=== PATIENT | female | born 1965 | race Caucasian/White ===

== ENCOUNTER 2020-09-29 14:57 | Emergency (ER) | payer BC, SELFPAY ==
--- NOTE | ~2020-09-29 | XR_ITS ---
EXAMINATION: XR chest 2V EXAM DATE: 09/29/2020 15:32 INDICATION: Midsternal chest pain, left arm tingling, weakness, almost fell to floor at 1 o'clock thi s afternoon. TECHNIQUE: Frontal and lateral projections of the chest obtained and reviewed. There is no prior tiffany dy for comparison. FINDINGS: The lungs are clear. There are no pleural effusions. The cardiomediastinal silhouette is within normal limits. There is no pneumothorax suspected. The bones and soft tissues are unremarkab le. IMPRESSION: Normal chest x-ray exam. Reviewed, dictated and finalized at location A. IMPRESSION: Normal chest x-ray exam.
[2020-09-29 15:11] VITALS: BP 125/84; PULSE 71; RESP 16; TEMP 36.1; O2SAT 100
--- NOTE | 2020-09-29 15:11 | ECG_ITS ---
Measurements Intervals [place] Rate: 78 P: 72 LA: 184 QRS: 49 QRSD: 84 T: 74 QT: 360 QTc: 411 Interpretive Statements SINUS RHYTHM BORDERLINE T WAVE ABNORMALITY- HIGH LATERAL LEADS BASELINE ARTIFACT- I, II, AVR BORDERLINE ECG Electronically Signed On 09-29-2020 17:34:12 CDT by Kevin Paredes D.O.
[2020-09-29 15:22] LABS: Basophils Absolute Auto 0.1 K/mm3 (0.0-0.1); Basophils Percent Auto 1.3 % (0.2-1.2); Eosinophils Absolute Auto 0.2 K/mm3 (0-0.3); Eosinophils Percent Auto 2.7 % (0-4.4); Hematocrit 40.4 % (37.0-47.0); Immature Granulocyte Absolute 0.01 K/mm3 (0.00-0.031); Immature Granulocyte Percent A 0.1 % (0-0.5); Lymphocytes Absolute Auto 2.74 K/mm3 (0.9-3.2); Lymphocytes Percent Auto 35.8 % (18.3-44.2); Mean Corpuscular HGB Conc 32.2 g/dl (32-36); Mean Corpuscular Hemoglobin 30.2 pg (26-34); Mean Corpuscular Volume 93.7 fl (80-100); Mean Platelet Volume 10.5 fl (7.4-10.4); Monocytes Absolute Auto 0.4 K/mm3 (0.1-0.6); Monocytes Percent Auto 5.6 % (2.6-8.5); Neutrophils Absolute Auto 4.2 K/mm3 (1.3-6.7); Neutrophils Percent Auto 54.5 % (45.5-73.1); Platelet Count Result 315 k/mm3 (150-375); Red Blood Count 4.31 M/mm3 (4.2-5.4); Red Cell Distribution Width 12.2 % (11.5-14.5); White Blood Count 7.7 K/mm3 (4.5-10.0)
[2020-09-29 15:32] LABS: Anion Gap 6 mmol/L (8-16); Blood Urea Nitrogen 17 mg/dL (7-17); Calcium 9.5 mg/dL (8.4-10.2); Carbon Dioxide 27 mmol/L (22-30); Chloride 104 mmol/L (98-107); Estimated CRCL calculation 50 ml/min; Estimated Glomerular Filt Rate > 60; Glucose 98 mg/dL (65-105); Potassium 3.7 mmol/L (3.4-5.0); Sodium 137 mmol/L (137-145)
[2020-09-29 15:36] LABS: INR 0.9; Prothrombin Time 12.6 Seconds (11.1-14.7)
[2020-09-29 15:37] LABS: Partial Thromboplastin Time 29.6 SECONDS (22.3-36.8)
[2020-09-29 15:44] LABS: Troponin I < 0.012 ng/mL (0.000-0.034)
[2020-09-29 17:41] VITALS: PULSE 70
[2020-09-29] MEDS: ASPIRIN 81 MG CHEWABLE TABLET 324 MG PO (18:03)
[2020-09-29 18:07] LABS: D Dimer 0.32 ug/mL (<0.48)
--- NOTE | 2020-09-29 18:12 | ED.GENADULT ---
HPI - General Adult General Chief complaint: Unspecified Stated complaint: L arm pain, weak Time Seen by Provider: 09/29/20 17:30 Source: patient Mode of arrival: ambulatory Limitations: no limitations History of Present Illness HPI narrative: This is a 55 year old female who presents for evaluation chest pain. 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 She states the pain was so severe that she fell to the ground but no LOC. She also reports midsternal chest pain. This pain lasted only a minute or two. She denies nausea, diaphoresis or sob. She denies cardiac history. She denies exertional symptoms. Related Data Allergies Allergy/AdvReac Type Severity Reaction Status Date / Time erythromycin base Allergy Unknown Verified 12/22/19 10:56 Penicillins Allergy Unknown Verified 12/22/19 10:56 tetracycline Allergy Unknown Verified 12/22/19 10:56 Review of Systems Review of Systems: Narrative: CONSTITUTIONAL: Denies fever, chills, or sweats. EYES: Denies visual changes, redness, or discharge. ENT: Denies rhinorrhea, congestion, sore throat, or otalgia. CARDIOVASCULAR: Denies, palpitations, or edema. reports chest pain RESPIRATORY: Denies cough or dyspnea. GASTROINTESTINAL: Denies abdominal pain, nausea, vomiting, or diarrhea. GENITOURINARY: Denies dysuria or hematuria. SKIN: Denies rash or itching. MUSCULOSKELETAL: Denies joint pain, or myalgia. NEUROLOGIC: Denies headache, numbness, or weakness. PSYCHIATRIC: Denies anxiety or depression. All systems reviewed & are unremarkable except as noted in HPI and below PMFSH Past Medical History Medical History (Updated 09/29/20 @ 20:02 by Mily Torres MD) Hypothyroidism Surgical History Surgical History (Updated 09/29/20 @ 18:28 by Mily Torres MD) History of hysterectomy Family History Family History (System 12/22/19 @ 10:56 by Mary Ann West) Mother Carcinoma of colon Sibling Family history of attention deficit hyperactivity disorder (ADHD) Social History Social History (System 12/22/19 @ 10:56 by Mary Ann West) Smoking status: Never smoker Alcohol intake: current Exam Narrative: Exam Narrative: GENERAL: Well-appearing, well-nourished, and in no acute distress. HEAD: Normocephalic, atraumatic EYES: PERRLA and EOMI, conjunctiva clear without discharge EARS: TM's clear bilaterally without erythema or dullness NOSE: Nares clear, no rhinorrhea or epistaxis THROAT:Mucous membranes moist, Oropharynx normal without erythema, exudate, peritonsillar swelling or fluctuance NECK: Supple, without lymphadenopathy or mass RESPIRATORY: No respiratory distress, Airway patent, Respirations non-labored, Clear to auscultation without rales, rhonchi or wheeze HEART: Regular rate and rhythm. No murmur heard. Normal peripheral pulses. ABDOMEN: Soft, nontender, nondistended, normal active bowel sounds. No masses. No rebound or guarding, No organomegaly. EXTREMITIES: No edema, normal strength with full range of motion. SKIN: Warm, dry, normal color without rash NEURO: Alert and oriented x3. CN 2-12 grossly intact. No focal deficits. PSYCH: Normal mood and affect. Course Reevaluation(s) Reevaluation #1: Patient states she feels fine. she has not pain. She is asking to go home. I have discussed with her it is important that she follow up with PCP on Friday and she should return if her pain returns. Date: 09/29/20 Time: 19:57 Vital Signs Vital signs: Vital Signs Temperature 97.0 F L 09/29/20 15:11 Pulse Rate 71 09/29/20 15:11 Respiratory Rate 16 09/29/20 15:11 Blood Pressure 125/84 09/29/20 15:11 Pulse Oximetry 100 09/29/20 15:11 Temperature 97.0 F L 09/29/20 15:11 Pulse Rate 67 09/29/20 18:16 Respiratory Rate 16 09/29/20 18:16 Blood Pressure 125/74 09/29/20 19:54 Pulse Oximetry 100 09/29/20 18:16 Medical [facility]
[2020-09-29 18:16] VITALS: BP 130/76; PULSE 67; RESP 16; O2SAT 100
[2020-09-29 19:54] VITALS: BP 125/74
[2020-09-29 20:24] VITALS: BP 109/74; PULSE 72; RESP 18; O2SAT 99
== END 2020-09-29 20:24 | disposition home or self-care (01) ==
PROVIDERS: Emergency Medicine; Emergency Provider General Practice; PCP Internal Medicine
DX: R07.89 Other chest pain (principal); E03.9 Hypothyroidism, unspecified; R94.31 Abnormal electrocardiogram [ECG] [EKG]
CPT/HCPCS: 36415; 71046; 80048; 84484; 85025; 85380; 85610; 85730; 93005; 99284; A9270

== ENCOUNTER 2023-03-20 15:12 | Outpatient (CLI) | payer BC, SELFPAY ==
--- NOTE | ~2023-03-20 | MR_ITS ---
EXAMINATION: MR knee RT wo con DATE: 03/20/2023 16:18 INDICATION: Other tear of medial meniscus with medial right knee pain. TECHNIQUE: Magnetic resonance imaging (MRI) of the right knee was performed without intravenous contr ast. Sequences included coronal PD-weighted FSE, coronal PD-weighted FS FSE, sagittal T2-weighted FS E, sagittal PD-weighted FS FSE and axial PD weighted fat saturated FSE. COMPARISON: None. FINDINGS: Medial compartment: In the body and medial side of the posterior horn of the medial meniscus are small with essentially a bsent meniscal tissue in the region of the lateral side of the posterior horn which could relate eith er meniscal tear or prior partial meniscectomy in the appropriate clinical setting. There is a large para meniscal cyst along the periphery of the medial meniscal body which measures 3.6 cm AP, 4.2 cm c raniocaudally and up to 1.5 cm in maximal thickness. Partial-thickness cartilage loss with chondral s urface irregularity along the weightbearing medial femoral condyle most prominent at the central aspe ct medial femoral condyle where it appears to involve greater than 50% the cartilage thickness. Addit ional deep chondral ulceration and fissuring at the junction of the anterior most weightbearing media l femoral condyle and the medial trochlea with underlying cortical irregularity with small central carlos bchondral osteophytes. Partial-thickness cartilage loss and fissuring along the medial and posteromed ial aspect of the medial tibial plateau with a couple foci of mild underlying subarticular edema-like signal change. Lateral compartment: Lateral meniscus is normal. Small regions of partial-thickness chondral fissuring involving less than 50% the cartilage thickness at the junction the anterior to central weightbearing lateral femoral co ndyle and greater than 50% the cartilage thickness along the posterior rim of the lateral tibial plat eau. There is partial thickness cartilage loss along the medial side of the lateral tibial plateau al lane the shoulder the intercondylar eminence. Patellofemoral compartment: Deep chondral ulceration with underlying cortical irregularity and small central subchondral osteophy urban at the medial patellar facet. Partial-thickness chondral fissuring without degenerative subchondr al changes at the central aspect of the apical ridge and cephalad aspect of the lateral patellar face t. Partial-thickness chondral ulceration and deep fissuring without degenerative subchondral changes at the caudal half of the trochlear groove. Previous noted there is deep chondral ulceration and sheridan ical irregularity at the inferior most lateral trochlea. Ligaments and tendons: Complete tear of the anterior cruciate ligament. The medial collateral ligament and fibular collatera l ligament complex are normal. Mild distal quadriceps tendinopathy. Patellar tendon is normal. The vi sualized medial and lateral hamstring tendons as well as the iliotibial band are normal. Fluid: Physiologic amount of fluid in the joint space. No loose osteochondral bodies identified. Osseous/other: There is additional mild osteoarthritis at the proximal tibiofibular articulation with subarticular c ystlike changes at the head of the fibula. No fracture or pathologic marrow replacing process. IMPRESSION: 1. Complete tear of the anterior cruciate ligament. 2. Significant loss of meniscal tissue at the body and posterior horn of the medial meniscus with ess entially absent meniscal tissue at the lateral side of the posterior horn which could be related to e ither meniscal tear with loss of meniscal tissue and/or prior partial meniscectomy. Correlate with carlos rgical history and with any prior outside imaging. 3. 4.2 x 3.6 x 1.5 cm parameniscal cyst along the periphery of the body of the medial meniscus. 4. Mild tricompartmental osteoarthritis with regions of high-grade chondromalacia in the patello
== END 2023-03-20 15:13 | disposition home or self-care (01) ==
PROVIDERS: Visit Provider Orthopaedic Surgery
DX: M17.11 Unilateral primary osteoarthritis, right knee (principal); S83.241A Other tear of medial meniscus, current injury, right knee, initial encounter; S83.511A Sprain of anterior cruciate ligament of right knee, initial encounter; M23.031 Cystic meniscus, other medial meniscus, right knee; M94.261 Chondromalacia, right knee
CPT/HCPCS: 73721

== ENCOUNTER 2023-04-07 00:47 | Day surgery (SDC) | payer BC, SELFPAY ==
[2023-04-01 14:52] VITALS: BMI 27.8
--- NOTE | 2023-04-01 15:00 | PC.NURSE ---
Report to the Outpatient Waiting Room, entrance under the green pavilion located off [facility], at time 1100 on date 04/07/23. Planned Procedure Time: 1300. Time changes happen often and if your time is changed the preop area will call you the afternoon before. - You and your visitor will be asked to self-screen and do not enter if you have any COVID symptoms. - A mask is optional within the hospital at this time. Patients may have clear liquids (water, carbonated beverages, clear teas, apple juice) until 3 hours prior to surgery with a maximum of 20 ounces. - No food from midnight until time of surgery Take the following medications with a SIP of water the morning of surgery: LEVOTHYROXINE, PREDNISONE DO NOT STOP ANY OF YOUR OTHER PRESCRIPTION MEDICATIONS PRIOR TO SURGERY ?EXCEPT THE FOLLOWING Medications to discontinue per physician: N/A Date to take last dose: N/A Please no make-up, nail sudanese, hairspray, perfume, deodorant, or body powder the day of surgery. No jewelry (including any body piercings) or valuables the day of surgery, leave them at home. Please take a shower or bath the night before, or the morning of, surgery with an antibacterial soap. Wear comfortable, loose fitting clothing. - Jewelry must be removed prior to entering the operating room. Rings and piercings that are not removed may be cut off. - The hospital will not accept responsibility for valuables. - Please leave all valuables, including medications, at home the day of surgery. If you are going home after surgery, a licensed tower truck driver must drive you home. - NO public transportation without another adult if you receive anesthesia. - We recommend that an adult stay with you for 24 hours following discharge. - We also recommend that you do not drive, make important decision, drink alcoholic beverages, or take any drugs that were not prescribed by your health care provider for at least 24 hours after your discharge time. Follow any additional instructions given to you from your surgeon. If you or anyone in your household have experienced Covid symptoms in the past week, please notify your surgeon or the nurse liaison at the phone number below for possible testing. Telephone instructions given to PT Tamara MONTENEGRO and asked if any additional questions and then verbalized understanding. Patient advised to call surgeon office or pre surgery nurse liaison [phone] if any additional questions.
--- NOTE | 2023-04-03 11:06 | PM.IMHP ---
H&P: HPI History of Present Illness Date/Time: 04/03/23 11:06 Chief Complaint: Patient has meniscal tear right knee. Narrative: Patient has pain in the right knee. she has trouble getting around because of the pain. She has failed conservative treatment consisting of the exercise therapy and cortisone anti-inflammatory medication. She would like to have the knee arthroscopy right Review of Systems Musculoskeletal: Musculoskeletal: Reports arthralgias and Reports joint swelling PMF Past Medical History Medical History History of cervical cancer Hypothyroidism Surgical History Surgical History (Updated 03/12/23 @ 13:52 by Tatiana Vega CMA) History of hysterectomy History of knee surgery right knee- Dr Amos Family History Family History Mother Carcinoma of colon Colon cancer Sibling Family history of attention deficit hyperactivity disorder (ADHD) Other Breast cancer Social History Social History Smoking status: Never smoker Alcohol intake: current Alcohol use details: VERY RARE Substance use: never Substance use type: does not use Lack of Transportation: No Lack of Food: Never True Current Housing: I Have Housing Concerned About Future Housing: No Difficulty Paying Gas/Electric Bills: No Difficulty Paying for Meds: No Currently Unemployed: No Education: High School Diploma/GED Difficulty w/ Childcare or Family Care: No Living arrangements: with family Occupation/Education: occupation Additional occupation/education comments: [employer] Spiritual care concerns: No Meds Home Medications and Allergies Home Medications Medication Instructions Recorded Confirmed Type levothyroxine 75 mcg capsule 75 mcg PO DAILY 03/12/23 04/01/23 History prednisone 10 mg tablet 10 mg PO BID #20 tabs 03/12/23 04/01/23 Rx estradiol 2 mg tablet 2 mg PO DAILY 04/01/23 04/01/23 History Allergies Allergy/AdvReac Type Severity Reaction Status Date / Time erythromycin base Allergy Unknown Nausea and Verified 04/01/23 14:50 Vomiting Penicillins Allergy Unknown Nausea and Verified 04/01/23 14:50 Vomiting tetracycline Allergy Unknown Nausea and Verified 04/01/23 14:50 Vomiting Exam Narrative: On exam the patient is a tenderness medially along the joint line she has a positive Fabricio's and pain to palpation manipulation she has catching and locking of the knee with a manipulation. She walks with an antalgic gait. Neurologically she appears to be intact including her toes. H&P: Results Labs Labs: Launch?Image [facility] [address] [place] [address] Magnetic Resonance Report Signed Patient: Tanesha Gomez : 1965 MR#: [id number] Age/Sex: 58 / F Acct:[id number] Loc: [facility]? ? ADM Date: 03/20/23Attending Dr: Luis Amos M.D. Ordering Physician: Luis Amos MD Date of Service: 03/20/23 Procedure(s): MR knee RT wo con Accession Number(s): [id number] cc: Luis Amos MD; [employer] PHYSICIAN~ EXAMINATION: MR knee RT wo con DATE: 03/20/2023 16:18 INDICATION: Other tear of medial meniscus with medial right knee pain. TECHNIQUE: Magnetic resonance imaging (MRI) of the right knee was performed without intravenous contrast.? Sequences included coronal PD-weighted FSE, coronal PD-weighted FS FSE, sagittal T2-weighted FSE, sagittal PD-weighted FS FSE and axial PD weighted fat saturated FSE. COMPARISON: None. FINDINGS: Medial compartment: In the body and medial side of the posterior horn of the medial meniscus are small with essentially absent meniscal tissue in the region of the lateral side of the posterior horn which could relate either meniscal tea
[2023-04-07] VITALS (10 sets, daily range): BP systolic 107–128; BP diastolic 67–82; PULSE 66–100; RESP 12–14; TEMP 36.2–36.3; O2SAT 99–100
--- NOTE | 2023-04-07 08:29 | WPDANESEPPF ---
Anes - Initial Pre Proc Eval Procedure: Operation Date: 04/07/23 13:00 Proposed Procedures p Right Knee Arthroscopy with Partial Meniscectomy - Luis Amos MD Date/Time: 04/07/23 08:29 Surgeon: Luis Amos MD Pre Op Diagnosis: Medial Meniscus Tear & Lateral Meniscus Rt Knee Patient Data Age: 58 Gender: F Height: 1.57 m Weight: 69 kg Allergies Allergy/AdvReac Type Severity Reaction Status Date / Time erythromycin base AdvReac Unknown Nausea and Verified 04/07/23 08:31 Vomiting Penicillins AdvReac Unknown Nausea and Verified 04/07/23 08:31 Vomiting tetracycline AdvReac Unknown Nausea and Verified 04/07/23 08:31 Vomiting Home Medications Medication Instructions Recorded Confirmed Type levothyroxine 75 mcg capsule 75 mcg PO DAILY 03/12/23 04/01/23 History prednisone 10 mg tablet 10 mg PO BID #20 tabs 03/12/23 04/01/23 Rx estradiol 2 mg tablet 2 mg PO DAILY 04/01/23 04/01/23 History Patient hx anesthesia problems: none Family hx anesthesia problems: none Results Review: All pre-operative results and documents have been reviewed as part of the pre-operative evaluation. [facility] Past Medical History Medical History History of cervical cancer Hypothyroidism Surgical History Surgical History (Updated 03/12/23 @ 13:52 by Tatiana Vega CMA) History of hysterectomy History of knee surgery right knee- Dr Amos Family History Family History Mother Carcinoma of colon Colon cancer Sibling Family history of attention deficit hyperactivity disorder (ADHD) Other Breast cancer Social History Social History Smoking status: Never smoker Alcohol intake: current Alcohol use details: VERY RARE Substance use: never Substance use type: does not use Lack of Transportation: No Lack of Food: Never True Current Housing: I Have Housing Concerned About Future Housing: No Difficulty Paying Gas/Electric Bills: No Difficulty Paying for Meds: No Currently Unemployed: No Education: High School Diploma/GED Difficulty w/ Childcare or Family Care: No Living arrangements: with family Occupation/Education: occupation Additional occupation/education comments: [employer] Spiritual care concerns: No Anes - Eval Final PreProcedure Day of Procedure 04/07/23 08:29 Patient weight: overweight Heart: regular rate and rhythm Lungs: clear to auscultation Airway: Mallampati scale class II Neurological: alert and oriented Last oral intake: >/= 8 hours ASA classification: II Emergent: no Anesthetic plan: proceed Anesthesia type and monitoring: general LMA and standard monitoring Results Review: All pre-operative results and documents have been reviewed as part of the pre-operative evaluation. Informed Consent: The patient's anesthetic plan and its attendant risks and benefits were discussed with the patient/family/POA. Questions were solicited and answers provided to the satisfaction of the patient/family/POA.
--- NOTE | 2023-04-07 10:57 | WPDHPUPDATE1 ---
History and Physical Update Update Date/Time: 04/07/23 10:57 History and Physical has been reviewed, including an updated exam of the patient. There are NO changes in the patient's condition. Risks, benefits, and alternatives have been discussed and questions answered. Patient agrees to proceed with procedure. Patient has meniscal tears, which I will debride.
[2023-04-07] MEDS: KETOROLAC 15 MG/ML VIAL (*BKC) IV PUSH (12:10)
[2023-04-07] MEDS: LACTATED RINGERS 1,000 ML 30 ML IV CONT (12:10)
[2023-04-07] MEDS: ACETAMINOPHEN 500 MG TABLET 1000 MG PO (12:10)
[2023-04-07] MEDS: ceFAZolin 2 GM/D5W 50 ML 2 GM/50 ML BAG IVPB (12:46)
[2023-04-07] MEDS: LIDO 1%/EPINEPHRINE 1:100,000 50 ML VIAL 20 ML INFILTRATE (13:01)
--- NOTE | 2023-04-07 13:24 | W.PM.PROC2 ---
Procedure Note - Detailed Date of Procedure 04/07/23 Pre-op Diagnosis Medial Meniscus Tear & Lateral Meniscus Rt Knee Post-op Diagnosis Same Procedure Performed RIGHT knee arthroscopy with partial meniscetomy, medial and lateral. Surgeon Luis Amos MD Anesthesia General Description of Procedure Patient brought to the operating room and anesthetic was administered. The knee was steriley prepped and drapped in the usual manner. Standard portals were used. Superior medial portal was used for the outflow cannula, inferior lateral portal was used for the scope, inferior medial portal was used for the instruments. Arthroscopy was performed, the patellar femoral joint degenerative changes. The medial compartment showed a complex tear. The medial compartment was also noted to have previous knee arthroscopy as the meniscus was much smaller. The lateral compartment showed tearing. The torn meniscus was debrided back to a stable base. The ACL was intact. Using baskets and dana the meniscal tears was trimmed back to a stable base so the nothing further could be pulled into the joint. Any loose or delaminated fragments were gently trimmed to a stable base. At this point the instruments were withdrawn, sutures placed and patient left the operating room in satisfactory condition. Estimated Blood Loss 20 Drains No Packing No Pathology None sent Complications No immediate complications Condition Stable Disposition PACU [facility] Billing Surgery - Charge Forward: Surgery Billing (MEDIAL AND LATERAL PARTIAL MENISECTOMIES RIGHT KNEE [id number])
[2023-04-07] MEDS: fentaNYL CITRATE INJ (*CRX) 100 MCG/2 ML VIAL 25 MCG IV PUSH ×4 (14:11→14:18)
[2023-04-07] MEDS: oxyCODONE HCL (*CRX) 5 MG TAB IR PO (14:42)
== END 2023-04-07 15:23 | disposition home or self-care (01) ==
PROVIDERS: Visit Provider Orthopaedic Surgery
PROC: (CPT 29870; principal; 2023-04-07 13:00)
DX: S83.241A Other tear of medial meniscus, current injury, right knee, initial encounter (principal); S83.281A Other tear of lateral meniscus, current injury, right knee, initial encounter; E03.9 Hypothyroidism, unspecified; Z98.890 Other specified postprocedural states; Z85.41 Personal history of malignant neoplasm of cervix uteri; Z80.0 Family history of malignant neoplasm of digestive organs; Z80.3 Family history of malignant neoplasm of breast; X58.XXXA Exposure to other specified factors, initial encounter
CPT/HCPCS: 29880; A9270; J0690; J1100; J1885; J2250; J2405; J2704; J3010; J7120